=== PATIENT | female | born 1965 | race Caucasian/White ===

== ENCOUNTER 2016-09-24 16:13 | Emergency (ER) | payer MEDICAID ==
[2016-09-24] MEDS ORDERED: OPTIRAY 350 100 ML VIAL HMH IV ONE (16:14)
[2016-09-24] MEDS ORDERED: ASPIRIN 81 MG CHEW TAB ONE (16:50)
[2016-09-24] MEDS ORDERED: SODIUM CHLORIDE 0.9% 1,000 ML ONE (16:51)
[2016-09-24] MEDS ORDERED: CEFAZOLIN 1,000 MG VIAL ONE (19:08)
[2016-09-24] MEDS ORDERED: SODIUM CHLORIDE 0.9% 100 ML IV ONE (19:09)
== END 2016-09-24 21:10 | disposition other institution (70) ==
LOC: ER 16:13
DX: G40.409 Other generalized epilepsy and epileptic syndromes, not intractable, without status epilepticus (principal); G83.84 Todd's paralysis (postepileptic); L03.115 Cellulitis of right lower limb; L03.116 Cellulitis of left lower limb; D50.9 Iron deficiency anemia, unspecified; E87.5 Hyperkalemia; E11.22 Type 2 diabetes mellitus with diabetic chronic kidney disease; N18.9 Chronic kidney disease, unspecified; E03.9 Hypothyroidism, unspecified; Z86.73 Personal history of transient ischemic attack (TIA), and cerebral infarction without residual deficits; Z86.74 Personal history of sudden cardiac arrest; Z79.899 Other long term (current) drug therapy
CPT/HCPCS: 36415; 70450; 70496; 70498; 71010; 80053; 81001; 82553; 82565; 82947; 84484; 85025; 85384; 85610; 85730; 93005; 96361; 96365

== ENCOUNTER 2016-10-07 13:44 | Emergency (ER) | payer MEDICAID ==
[2016-10-07] MEDS ORDERED: SODIUM CHLORIDE 0.9% 1,000 ML ONE ×2 (15:20→16:47)
[2016-10-07] MEDS ORDERED: ONDANSETRON 4 MG VIAL ONE (15:20)
[2016-10-07] MEDS ORDERED: KEPPRA 500 MG in SOD CHLOR 0.9% INJ 100 ML IV ONE ×2 (15:23→15:25)
[2016-10-07] MEDS ORDERED: KEPPRA 500 MG IV ONE ×2 (15:25)
[2016-10-07] MEDS ORDERED: LEVETIRACETAM INJ 1,000 MG in SODIUM CHLORIDE 0.9% 100 ML IV ONE (15:30)
[2016-10-07] MEDS ORDERED: KETOROLAC 30 MG/ML VIAL ONE (18:51)
== END 2016-10-07 20:04 | disposition home or self-care (01) ==
LOC: ER 13:44
DX: G40.409 Other generalized epilepsy and epileptic syndromes, not intractable, without status epilepticus (principal); R19.7 Diarrhea, unspecified; E86.0 Dehydration; D50.9 Iron deficiency anemia, unspecified; E11.22 Type 2 diabetes mellitus with diabetic chronic kidney disease; N18.9 Chronic kidney disease, unspecified; Z86.74 Personal history of sudden cardiac arrest; Z79.899 Other long term (current) drug therapy
CPT/HCPCS: 36415; 71010; 80053; 81001; 82947; 83540; 83880; 84439; 84443; 84466; 85025; 87077; 87088; 87186; 96361; 96365; 96375